=== PATIENT | male | born 1945 | race Caucasian/White ===

== ENCOUNTER → 2018-10-17 | Day surgery (SDC) | payer MEDICARE, OTHER ==
[~2018-10-17] MED LIST: ALEVE220 MG PO; ASPIR 8181 MG PO; CENTRUM SILVER1 EAC2 PO; MAGNESIUM400 MG PO; OXYCODONE HCL 55 MG PO; PRAVACHOL20 MG PO; PROTONIX40 M1 PO; VIAGRA100 MG PO; VITAMIN D3400 UNIT PO; VITAMIN E400 UNIT PO; ZANTAC 150MG T150 MG PO
[2018-10-17 07:40] LABS: HEMATOCRIT 43.8 % (42.0-52.0); MCH 31.3 pg (26.0-34.0); MCHC 34.1 g/dL (28.0-37.0); MCV 91.8 fL (80.0-100.0); MPV 9.5 fl. (7.2-11.1); RBC 4.78 mil/uL (4.50-6.00); WBC 10.8 thou/uL (4.0-11.0)
[2018-10-17 07:49] LABS: CALCIUM 8.9 mg/dL (8.5-10.1); CREATININE 1.4 mg/dL (0.6-1.3); POTASSIUM 3.8 mmol/L (3.5-5.1)
[2018-10-17 07:54] LABS: TOTAL BILIRUBIN 0.9 mg/dL (<0.1-1.0); TOTAL PROTEIN 7.3 g/dL (6.4-8.2)
== END | disposition home or self-care (01) ==
LOC: M.SUR
PROVIDERS: Surgery
DX: K40.90 Unilateral inguinal hernia, without obstruction or gangrene, not specified as recurrent (principal); Z90.49 Acquired absence of other specified parts of digestive tract; Z79.899 Other long term (current) drug therapy; Z79.82 Long term (current) use of aspirin